=== PATIENT | female | born 1950 | race Caucasian/White ===

== ENCOUNTER → 2017-04-10 | Outpatient (CLI) | payer OTHER ==
--- NOTE | 2017-04-10 15:18 | MAMMOGRAPHY REPORT ---
BILATERAL DIGITAL SCREENING MAMMOGRAM WITH CAD: 04/10/2017 CLINICAL HISTORY: Routine screening. Patient has no complaints. TECHNIQUE: Bilateral CC, MLO and right exaggerated lateral CC views were obtained. Current study was also evaluated with a Computer Aided Detection (CAD) system. COMPARISON: Comparison is made to exams dated: 04/07/2016 mammogram, 03/27/2015 mammogram, 03/26/2014 mammogram, 03/25/2013 mammogram, 03/22/2012 mammogram, and 02/25/2011 mammogram - [facility]. BREAST COMPOSITION: The tissue of both breasts is heterogeneously dense, which may obscure small mas ses. FINDINGS: There are stable intramammary lymph nodes in each upper outer quadrant. Mild vascular calc ification in the breasts. No suspicious mass, architectural distortion or cluster of microcalcificat ions is seen. IMPRESSION: ACR BI-RADS CATEGORY 1: NEGATIVE There is no mammographic evidence of malignancy. A 1 year screening mammogram is recommended. The pa tient will receive written notification of the results. Approximately 10% of breast cancers are not detected with mammography. A negative mammographic report should not delay biopsy if a clinically suggestive mass is present. Yuliana Roblero M.D. ay/:04/10/2017 12:46:36 Finisher Hand: Alecia CHO)(Joe)(BD), [facility] letter sent: Normal 1/2 BI-RADS Code: ACR BI-RADS Category 1: Negative
== END | disposition home or self-care (01) ==
LOC: C.MAMM 11:20
PROVIDERS: ATTEND Nurse Practitioner
DX: Z12.31 Encounter for screening mammogram for malignant neoplasm of breast (principal)

== ENCOUNTER → 2017-12-01 | Outpatient (CLI) | payer OTHER ==
[2017-12-01 13:57] LABS: ALBUMIN 3.8 gm/dl (3.4-5.0); ALKALINE PHOSPHATASE 72 U/L (45-117); ALT/SGPT 23 U/L (12-78); AST/SGOT 18 U/L (15-37); BLOOD UREA NITROGEN 14 mg/dl (7-18); CALCIUM 9.1 mg/dl (8.5-10.1); CARBON DIOXIDE 26 mmol/L (21-32); CHOLESTEROL 139 mg/dl (0-200); CREATININE 0.72 mg/dl (0.60-1.20); GLUCOSE 104 mg/dl (70-99); LDL CHOLESTEROL CALCULATED 64 mg/dl; POTASSIUM 4.1 mmol/L (3.5-5.1); SODIUM 139 mmol/L (136-145); TOTAL PROTEIN 7.2 gm/dl (6.4-8.2)
== END | disposition home or self-care (01) ==
LOC: C.LABPVFM 07:27
PROVIDERS: ATTEND Nurse Practitioner
DX: E78.5 Hyperlipidemia, unspecified (principal); E55.9 Vitamin D deficiency, unspecified; I10 Essential (primary) hypertension